=== PATIENT | female | born 1955 | race Caucasian/White ===

== ENCOUNTER 2018-10-17 09:02 | Inpatient (IN) ==
[~2018-10-17 09:02] MED LIST: DEXTROSE 50% 25 GM/50 ML VIAL IV PRN; GLUCAGON 1 MG VIAL IM PRN; ZOLPIDEM 5 MG TABLET PO PRN
[2018-10-17 09:59] LABS: Basophils % 0.4 % (0.0-0.8); Eosinophils # 0.2 10*3/uL (0.0-0.87); Hematocrit 34.2 VOL% (35.7-47.0); Hemoglobin 11.5 GM/DL (12.0-16.0); Immature Granulocytes % 0.3 %; Immature Granulocytes Absolute 0.02 #; Lymphocytes % 26.5 % (21.3-54.2); Mean Corpuscular HGB Conc 33.6 GM/DL (32-36); Mean Corpuscular Volume 84.7 FL (87-102); Mean Platelet Volume 10.7 FL (9.6-12.0); Monocytes % 6.9 % (1.7-12.7); Neutrophils % 62.9 % (38.7-73.9); Platelet Count 171 T/CUMM (130-400); Red Blood Count 4.04 MC/CUMM (3.8-5.5); Red Cell Distribution Width 13.3 % (9.3-17.3); White Blood Count 7.7 T/CUMM (4-12)
[2018-10-17 10:21] LABS: Albumin 3.3 G/DL (3.4-5.0); Bilirubin,Total 0.6 MG/DL (0.2-1.0); Calcium 9.4 MG/DL (8.5-10.1); Osmolality,Calculated 290.3 MOS/KG (273-304)
[2018-10-17] MEDS: LEVOTHYROXINE 100 MCG TABLET PO SCH (12:23)
[2018-10-17] MEDS: CARVEDILOL 6.25 MG TABLET PO SCH ×2 (12:24→20:33)
[2018-10-17] MEDS: hydroCHLOROthiazide 12.5 MG CAPSULE PO SCH (12:26)
[2018-10-17] MEDS: ATORVASTATIN 40 MG TABLET PO SCH (12:26)
[2018-10-17] MEDS: CHLORHEXIDINE 0.12% ORAL RINSE 60 ML BOTTLE SWISH/SPIT SCH ×2 (12:27→20:33)
[2018-10-17] MEDS: LISINOPRIL 20 MG TABLET PO SCH (12:27)
[2018-10-17] MEDS ORDERED: CLORAZEPATE 3.75 MG TABLET PO PRN (13:13)
[2018-10-17] MEDS: CHLORHEXIDINE 4% SOLN 118 ML BOTTLE TOP SCH ×3 (15:13→20:34)
[2018-10-17] MEDS ORDERED: ESCITALOPRAM 10 MG TABLET PO SCH (21:00)
[2018-10-18] MEDS: CHLORHEXIDINE 4% SOLN 118 ML BOTTLE TOP SCH (02:51)
[2018-10-18 04:06] LABS: Allen Test Positive; Pt O2 Delivery Device Room Air
[2018-10-18 04:10] LABS: ABG Base Excess 0.9 MMOL/L (-2.5-2.5); ABG HCO3 25.2 MMOL/L (20-26); ABG Oxygen Saturation 98.7 % (95-100); ABG PCO2 38.1 MM HG (35-48); ABG PH 7.427 (7.35-7.45); ABG TCO2 22.4 MMOL/L (23-27)
[2018-10-18] MEDS ORDERED: PAPAVERINE 60 MG/2 ML VIAL ONE (04:24)
[2018-10-18] MEDS ORDERED: VANCOMYCIN 1,000 MG VIAL ONE (04:25)
[2018-10-18] MEDS ORDERED: LORazepam 1 MG TABLET PO ONE (04:56)
[2018-10-18] MEDS: CARVEDILOL 6.25 MG TABLET PO SCH ×4 (05:35→20:57)
[2018-10-18] MEDS: LEVOTHYROXINE 100 MCG TABLET PO SCH (05:35)
[2018-10-18] MEDS: LISINOPRIL 20 MG TABLET PO SCH ×2 (05:36→14:38)
[2018-10-18] MEDS: hydroCHLOROthiazide 12.5 MG CAPSULE PO SCH ×2 (05:36→14:37)
[2018-10-18] MEDS ORDERED: MIDAZOLAM 10 MG/2 ML VIAL ONE (05:55)
[2018-10-18] MEDS ORDERED: SUFentanil 250 MCG/5 ML AMP ONE (05:55)
[2018-10-18] MEDS ORDERED: CEFUROXIME INJ 1,500 MG in SYRINGE 1 EACH IV ONE (06:00)
[2018-10-18 07:45] LABS: ABG Base Excess 0.3 MMOL/L (-2.5-2.5); ABG HCO3 24.7 MMOL/L (20-26); ABG PCO2 35.6 MM HG (35-48); ABG PH 7.438 (7.35-7.45); ABG TCO2 21.7 MMOL/L (23-27); Glucose Heart Surgery 201 MG/DL (74-106); Hematocrit Heart Surgery 32.8 PERCENT (37-47); Hemoglobin Heart Surgery 10.6 G/DL (12.0-16.0); Ionized Calcium Arterial 1.25 MMOL/L (1.21-1.46); PCO2 Patient Temp Arterial 35.6 MMHG; PH Patient Temp Arterial 7.438; Patient Temperature 37 CELCIUS; Potassium Heart/CVR 3.2 MMOL/L (3.5-5.1); Sodium Heart/CVR 138 MMOL/L (135-145)
[2018-10-18 08:51] LABS: Amorphous Crystals,Urine Occasional /HPF (Few); Apearance,Urine CLOUDY (Clear); Bilirubin,Urine Negative (Negative); Blood, Urine Small mg/dL (Negative); Glucose,Urine (UA) 50 mg/dL (Negative); Ketones,Urine Negative (Negative); Nitrite,Urine Negative (Negative); Protein,Urine >=500 MG/DL; Squamous Epithelial Cell,Urine Occasional /HPF (0-10); Urine Color Yellow (Yellow); Urine Specific Gravity 1.011 (1.001-1.035); Urine Urobilinogen < 2.0 EU/DL (0.2-1.0)
[2018-10-18] MEDS ORDERED: ESCITALOPRAM 10 MG TABLET PO SCH (09:00)
[2018-10-18] MEDS ORDERED: PHENYLEPHRINE 1 MG/10 ML SYRINGE IV ONE ×2 (09:22→11:40)
[2018-10-18] MEDS ORDERED: HEPARIN/NACL 0.9% 2 UNITS/ML 500 ML IV ONE (09:22)
[2018-10-18] MEDS ORDERED: NITROGLYCERIN DRIP 50 MG/250 ML BOTTLE IV ONE (09:22)
[2018-10-18] MEDS ORDERED: PHENYLEPHRINE DRIP 20 MG/250 ML PREMIX IV ONE (09:22)
[2018-10-18 09:28] LABS: Hemoglobin Heart Surgery 6.7 G/DL (12.0-16.0); PCO2 Patient Temp Venous 35.6 MM HG; PH Patient Temp Venous 7.437; PO2 Patient Temp Venous 35.8 MM HG; Potassium Heart/CVR 3.8 MMOL/L (3.5-5.1); VBG Base Excess 0.2 MEQ/L (0-4); VBG HCO3 24.4 MEQ/L (24-28); VBG Oxygen Saturation 79.1 %; VBG PCO2 39.2 MMHG (41-51); VBG PH 7.408; VBG PO2 41.1 MMHG (17-40)
[2018-10-18] MEDS ORDERED: NITROPRUSSIDE 50 MG/2 ML VIAL ONE (09:36)
[2018-10-18] MEDS ORDERED: PHENYLEPHRINE DRIP 40 MG/250 ML PREMIX IV ONE (09:36)
[2018-10-18] MEDS ORDERED: SODIUM BICARBONATE 50 MEQ/50 ML VIAL IV ONE ×2 (09:37→10:45)
[2018-10-18] MEDS ORDERED: CALCIUM CHLORIDE 1,000 MG/10 ML SYRINGE IV ONE (09:37)
[2018-10-18] MEDS ORDERED: POTASSIUM CHLORIDE RIDER 100 ML IV ONE (09:37)
[2018-10-18] MEDS ORDERED: LIDOCAINE 100 MG/5 ML SYRINGE ONE (09:37)
[2018-10-18] MEDS ORDERED: ATROPINE 1 MG/10 ML SYRINGE ONE (09:37)
[2018-10-18] MEDS ORDERED: EPINEPHrine 1 MG/10 ML SYRINGE ONE (09:37)
[2018-10-18] MEDS ORDERED: ALBUMIN 5% 12.5 GM/250 ML VIAL IV ONE (09:37)
[2018-10-18 10:01] LABS: Hematocrit Heart Surgery 21.9 PERCENT (37-47); PCO2 Patient Temp Venous 35.8 MM HG; PH Patient Temp Venous 7.429; PO2 Patient Temp Venous 33.3 MM HG; VBG Base Excess -0.3 MEQ/L (0-4); VBG Oxygen Saturation 75.2 %; VBG PCO2 39.4 MMHG (41-51); VBG PH 7.4; VBG PO2 38.3 MMHG (17-40)
[2018-10-18 10:33] LABS: ABG Base Excess 0.9 MMOL/L (-2.5-2.5); ABG HCO3 25.2 MMOL/L (20-26); ABG Oxygen Saturation 99.9 % (95-100); ABG TCO2 23.5 MMOL/L (23-27); Glucose Heart Surgery 288 MG/DL (74-106); Hematocrit Heart Surgery 26.1 PERCENT (37-47); Hemoglobin Heart Surgery 8.4 G/DL (12.0-16.0); Ionized Calcium Arterial 1.27 MMOL/L (1.21-1.46); Patient Temperature 37 CELCIUS; Potassium Heart/CVR 3.5 MMOL/L (3.5-5.1); Sodium Heart/CVR 132 MMOL/L (135-145)
[2018-10-18] MEDS ORDERED: THROMBIN TOPICAL (RECOMBINANT) 5,000 UNIT VIAL TOP ONE (10:43)
[2018-10-18] MEDS ORDERED: MANNITOL 100 GM/500 ML BAG IV ONE (10:45)
[2018-10-18] MEDS ORDERED: ALBUMIN 25% 25 GM/100 ML VIAL IV ONE (10:45)
[2018-10-18] MEDS ORDERED: DEXTROSE 5% KCL 20 MEQ 20 MEQ/1,000 ML BAG IV ONE (10:45)
[2018-10-18] MEDS ORDERED: FUROSEMIDE 20 MG/2 ML VIAL ONE (10:46)
[2018-10-18] MEDS ORDERED: HEPARIN 10,000 UNIT/10 ML VIAL ONE (10:46)
[2018-10-18] MEDS ORDERED: PROTAMINE SULFATE 250 MG/25 ML VIAL IV ONE (10:46)
[2018-10-18] MEDS ORDERED: MAGNESIUM SULFATE 5 GM/10 ML VIAL IV ONE (10:46)
[2018-10-18] MEDS ORDERED: methylPREDNISolone SOD SUC 1,000 MG/8 ML VIAL ONE (10:46)
[2018-10-18] MEDS ORDERED: PROTAMINE SULFATE 50 MG/5 ML VIAL IV ONE ×3 (10:46→11:44)
[2018-10-18] MEDS: SODIUM CHLORIDE 0.45% 1,000 ML IV SCH ×2 (11:12)
[2018-10-18] MEDS ORDERED: NITROPRUSSIDE 100 MG in DEXTROSE 5% 250 ML IV PRN (11:36)
[2018-10-18] MEDS ORDERED: DEXTROSE 50% 25 GM/50 ML VIAL IV PRN ×2 (11:36)
[2018-10-18] MEDS ORDERED: MAGNESIUM SULF RIDER 4 GM in PREMIX 1 EACH IV PRN (11:36)
[2018-10-18] MEDS ORDERED: PHENYLEPHRINE DRIP 40 MG/250 ML PREMIX IV PRN (11:36)
[2018-10-18] MEDS ORDERED: MAGNESIUM SULF RIDER 2 GM in PREMIX 1 EACH IV PRN (11:36)
[2018-10-18] MEDS ORDERED: CALCIUM CHLORIDE 1,000 MG/10 ML SYRINGE IV PRN (11:36)
[2018-10-18] MEDS ORDERED: VECURONIUM 10 MG VIAL IV PRN ×2 (11:36)
[2018-10-18] MEDS ORDERED: INSULIN REGULAR 100 UNIT/ML IV ONE (11:36)
[2018-10-18] MEDS ORDERED: LACTATED RINGERS 250 ML IV PRN (11:36)
[2018-10-18] MEDS ORDERED: MIDAZOLAM 2 MG/2 ML VIAL IV PRN (11:36)
[2018-10-18] MEDS ORDERED: INSULIN REGULAR 100 UNIT/ML IV PRN (11:36)
[2018-10-18] MEDS ORDERED: ACETAMINOPHEN 650 MG SUPP RECTAL PRN (11:36)
[2018-10-18] MEDS ORDERED: MIDAZOLAM 10 MG/2 ML VIAL IV PRN (11:36)
[2018-10-18] MEDS ORDERED: INSULIN REGULAR DRIP 100 ML IV SCH (11:36)
[2018-10-18] MEDS ORDERED: SEVOFLURANE 1 UNIT/15 MINUTE INH ONE (11:39)
[2018-10-18] MEDS ORDERED: AMINOCAPROIC ACID 5,000 MG/20 ML VIAL ONE (11:40)
[2018-10-18] MEDS ORDERED: SODIUM CHLORIDE 0.9% 1,000 ML IV ONE (11:40)
[2018-10-18] MEDS ORDERED: SODIUM CHLORIDE 0.9% 250 ML IV ONE (11:40)
[2018-10-18] MEDS ORDERED: ETOMIDATE 40 MG/20 ML VIAL IV ONE (11:40)
[2018-10-18] MEDS ORDERED: SODIUM CHLORIDE 0.9% 200 ML IV ONE (11:40)
[2018-10-18 11:46] LABS: ABG Base Excess 1.9 MMOL/L (-2.5-2.5); ABG HCO3 26.1 MMOL/L (20-26); ABG Oxygen Saturation 99.5 % (95-100); ABG PCO2 38.6 MM HG (35-48); ABG PH 7.437 (7.35-7.45); ABG TCO2 23.9 MMOL/L (23-27); Glucose Heart Surgery 292 MG/DL (74-106); Potassium Heart/CVR 3.4 MMOL/L (3.5-5.1)
[2018-10-18] MEDS: POTASSIUM CHLORIDE RIDER 20 MEQ in PREMIX 1 EACH IV PRN ×5 (11:52→17:29)
[2018-10-18 11:53] LABS: Basophils % 0.4 % (0.0-0.8); Eosinophils # 0.1 10*3/uL (0.0-0.87); Eosinophils % 1.4 % (0.00-10.9); Hematocrit 25.7 VOL% (35.7-47.0); Immature Granulocytes % 0.8 %; Immature Granulocytes Absolute 0.04 #; Lymphocytes # 0.8 10*3/uL (1.4-4.0); Lymphocytes % 15.7 % (21.3-54.2); Mean Corpuscular HGB Conc 33.5 GM/DL (32-36); Mean Platelet Volume 10.3 FL (9.6-12.0); Monocytes % 4.7 % (1.7-12.7); Platelet Count 129 T/CUMM (130-400); Red Blood Count 2.99 MC/CUMM (3.8-5.5); Red Cell Distribution Width 13.3 % (9.3-17.3); White Blood Count 5.1 T/CUMM (4-12)
[2018-10-18 11:54] LABS: Hemoglobin 8.6 GM/DL (12.0-16.0)
[2018-10-18] MEDS: KETOROLAC 30 MG/1 ML VIAL IV SCH ×3 (11:57→23:27)
[2018-10-18 12:00] LABS: INR 1.1; PT Patient Result 11.5 SECS
[2018-10-18] MEDS: LACTATED RINGERS 1,000 ML IV PRN ×4 (12:30→15:00)
[2018-10-18 12:33] LABS: CKMB % 6.5 %
[2018-10-18 12:35] LABS: Troponin I 2.93 NG/ML (0.00-0.045)
[2018-10-18 12:42] LABS: Albumin 3.1 G/DL (3.4-5.0); Bilirubin,Total 1.1 MG/DL (0.2-1.0); Calcium 9.3 MG/DL (8.5-10.1); Osmolality,Calculated 288.7 MOS/KG (273-304); Total Protein 5.4 G/DL (6.4-8.3)
[2018-10-18] MEDS: ALBUMIN 5% 12.5 GM in PREMIX 1 EACH IV PRN ×2 (12:46→12:50)
[2018-10-18 13:44] LABS: ABG Base Excess 0.4 MMOL/L (-2.5-2.5); ABG HCO3 24.8 MMOL/L (20-26); ABG Oxygen Saturation 98.9 % (95-100); ABG PCO2 35.9 MM HG (35-48); ABG PH 7.438 (7.35-7.45); ABG TCO2 22.4 MMOL/L (23-27); Glucose Heart Surgery 241 MG/DL (74-106); Hematocrit Heart Surgery 27.5 PERCENT (37-47); Hemoglobin Heart Surgery 8.9 G/DL (12.0-16.0); Potassium Heart/CVR 3.6 MMOL/L (3.5-5.1)
[2018-10-18] MEDS ORDERED: SODIUM CHLORIDE 0.9% 1,000 ML IV PRN (13:48)
[2018-10-18] MEDS: POTASSIUM CHLORIDE RIDER 10 MEQ in PREMIX 1 EACH IV PRN ×3 (14:26→18:02)
[2018-10-18] MEDS: SODIUM CHLORIDE 0.9% 1,000 ML IV SCH ×2 (14:36→14:37)
[2018-10-18] MEDS: ATORVASTATIN 40 MG TABLET PO SCH (14:37)
[2018-10-18] MEDS: CHLORHEXIDINE 0.12% ORAL RINSE 60 ML BOTTLE SWISH/SPIT SCH ×2 (14:38→20:58)
[2018-10-18 15:31] LABS: ABG Base Excess 0.3 MMOL/L (-2.5-2.5); ABG HCO3 24.7 MMOL/L (20-26); ABG Oxygen Saturation 98.9 % (95-100); ABG PH 7.453 (7.35-7.45); ABG TCO2 21.7 MMOL/L (23-27); Glucose Heart Surgery 198 MG/DL (74-106); Hematocrit Heart Surgery 29.6 PERCENT (37-47); Hemoglobin Heart Surgery 9.5 G/DL (12.0-16.0); Potassium Heart/CVR 3.6 MMOL/L (3.5-5.1)
[2018-10-18 17:18] LABS: ABG Base Excess 1.3 MMOL/L (-2.5-2.5); ABG HCO3 25.6 MMOL/L (20-26); ABG Oxygen Saturation 98.8 % (95-100); ABG PCO2 35.2 MM HG (35-48); ABG PH 7.457 (7.35-7.45); ABG TCO2 22.3 MMOL/L (23-27); Glucose Heart Surgery 178 MG/DL (74-106); Hematocrit Heart Surgery 32.6 PERCENT (37-47); Hemoglobin Heart Surgery 10.6 G/DL (12.0-16.0); Potassium Heart/CVR 3.7 MMOL/L (3.5-5.1)
[2018-10-18] MEDS: CEFUROXIME INJ 1,500 MG in SYRINGE 1 EACH IV SCH (18:53)
[2018-10-18 19:04] LABS: ABG HCO3 26.2 MMOL/L (20-26); ABG Oxygen Saturation 99.4 % (95-100); ABG PCO2 34.8 MM HG (35-48); ABG TCO2 22.6 MMOL/L (23-27); Glucose Heart Surgery 156 MG/DL (74-106); Hematocrit Heart Surgery 34.1 PERCENT (37-47); Hemoglobin Heart Surgery 11.1 G/DL (12.0-16.0); Potassium Heart/CVR 4.1 MMOL/L (3.5-5.1)
[2018-10-18 20:58] LABS: ABG Base Excess 1.8 MMOL/L (-2.5-2.5); ABG Oxygen Saturation 98.3 % (95-100); ABG PCO2 39.7 MM HG (35-48); ABG PH 7.427 (7.35-7.45); ABG PO2 93.5 MM HG (80-95); ABG TCO2 23.6 MMOL/L (23-27); Glucose Heart Surgery 136 MG/DL (74-106); Hemoglobin Heart Surgery 10.4 G/DL (12.0-16.0); Potassium Heart/CVR 3.9 MMOL/L (3.5-5.1)
[2018-10-18 21:18] LABS: CKMB % 3.5 %
[2018-10-18 21:21] LABS: Troponin I 5.09 NG/ML (0.00-0.045)
[2018-10-18] MEDS: MORPHINE 10 MG/1 ML VIAL IV PRN (21:50)
[2018-10-18 23:55] LABS: ABG HCO3 26.2 MMOL/L (20-26); ABG Oxygen Saturation 97.6 % (95-100); ABG PCO2 38.4 MM HG (35-48); ABG PO2 85.6 MM HG (80-95); ABG TCO2 23.4 MMOL/L (23-27); Glucose Heart Surgery 140 MG/DL (74-106); Hematocrit Heart Surgery 34.1 PERCENT (37-47); Hemoglobin Heart Surgery 11.1 G/DL (12.0-16.0); Potassium Heart/CVR 3.9 MMOL/L (3.5-5.1)
[2018-10-18] MEDS ORDERED: FUROSEMIDE 40 MG/4 ML VIAL IV ONE (23:55)
[2018-10-19] MEDS: MORPHINE 4 MG/1 ML VIAL IV PRN (00:12)
[2018-10-19] MEDS: POTASSIUM CHLORIDE RIDER 20 MEQ in PREMIX 1 EACH IV PRN ×2 (00:38→07:53)
[2018-10-19] MEDS: POTASSIUM CHLORIDE RIDER 10 MEQ in PREMIX 1 EACH IV PRN (01:10)
[2018-10-19] MEDS: ALBUTEROL/IPRATROPIUM 3 ML NEB RESP TX SCH ×6 (01:42→19:30)
[2018-10-19 02:21] LABS: ABG Base Excess 1.6 MMOL/L (-2.5-2.5); ABG HCO3 25.9 MMOL/L (20-26); ABG Oxygen Saturation 98.3 % (95-100); ABG PCO2 35.8 MM HG (35-48); ABG PH 7.456 (7.35-7.45); ABG TCO2 22.5 MMOL/L (23-27); Glucose Heart Surgery 141 MG/DL (74-106); Hematocrit Heart Surgery 34.4 PERCENT (37-47); Hemoglobin Heart Surgery 11.2 G/DL (12.0-16.0); Potassium Heart/CVR 4.3 MMOL/L (3.5-5.1)
[2018-10-19 03:02] LABS: ABG HCO3 26.1 MMOL/L (20-26); ABG Oxygen Saturation 96.6 % (95-100); ABG PCO2 36.9 MM HG (35-48); ABG PH 7.452 (7.35-7.45); ABG PO2 77.4 MM HG (80-95); ABG TCO2 23.2 MMOL/L (23-27); Glucose Heart Surgery 141 MG/DL (74-106); Hematocrit Heart Surgery 32.8 PERCENT (37-47); Hemoglobin Heart Surgery 10.6 G/DL (12.0-16.0); Potassium Heart/CVR 4.3 MMOL/L (3.5-5.1)
[2018-10-19 03:08] LABS: Basophils % 0.1 % (0.0-0.8); Hematocrit 31.4 VOL% (35.7-47.0); Hemoglobin 10.4 GM/DL (12.0-16.0); Immature Granulocytes % 0.3 %; Immature Granulocytes Absolute 0.03 #; Lymphocytes # 0.6 10*3/uL (1.4-4.0); Lymphocytes % 6.8 % (21.3-54.2); Mean Corpuscular HGB Conc 33.1 GM/DL (32-36); Mean Platelet Volume 11.1 FL (9.6-12.0); Monocytes % 3.5 % (1.7-12.7); Neutrophils % 89.3 % (38.7-73.9); Platelet Count 131 T/CUMM (130-400); Red Blood Count 3.65 MC/CUMM (3.8-5.5); Red Cell Distribution Width 14.1 % (9.3-17.3)
[2018-10-19 03:23] LABS: CKMB % 2.8 %
[2018-10-19 03:25] LABS: Troponin I 4.66 NG/ML (0.00-0.045)
[2018-10-19 03:27] LABS: Albumin 3.1 G/DL (3.4-5.0); Bilirubin,Direct 0.21 MG/DL (0.0-0.20); Bilirubin,Total 0.9 MG/DL (0.2-1.0); Calcium 8.9 MG/DL (8.5-10.1); Osmolality,Calculated 288.1 MOS/KG (273-304); Total Protein 5.8 G/DL (6.4-8.3)
[2018-10-19 04:22] LABS: ABG Base Excess 0.8 MMOL/L (-2.5-2.5); ABG HCO3 25.1 MMOL/L (20-26); ABG Oxygen Saturation 96.2 % (95-100); ABG PH 7.389 (7.35-7.45); ABG PO2 81.8 MM HG (80-95); ABG TCO2 23.3 MMOL/L (23-27); Glucose Heart Surgery 141 MG/DL (74-106); Hematocrit Heart Surgery 33.6 PERCENT (37-47); Hemoglobin Heart Surgery 10.9 G/DL (12.0-16.0); Potassium Heart/CVR 4.2 MMOL/L (3.5-5.1)
[2018-10-19] MEDS: KETOROLAC 30 MG/1 ML VIAL IV SCH ×3 (05:26→16:42)
[2018-10-19] MEDS: ONDANSETRON 4 MG/2 ML VIAL IV PRN (05:49)
[2018-10-19] MEDS ORDERED: FUROSEMIDE 40 MG/4 ML VIAL IV ONE (06:01)
[2018-10-19] MEDS ORDERED: FUROSEMIDE 40 MG/4 ML VIAL ONE (06:01)
[2018-10-19] MEDS ORDERED: AMIODARONE INJ 150 MG in DEXTROSE 5% 100 ML IV ONE (06:27)
[2018-10-19] MEDS ORDERED: AMIODARONE 450 MG/9 ML VIAL IV ONE (06:30)
[2018-10-19] MEDS ORDERED: AMIODARONE INJ 450 MG in DEXTROSE 5% 241 ML IV SCH ×2 (06:30→13:00)
[2018-10-19] MEDS ORDERED: AMIODARONE 150 MG/3 ML VIAL ONE (06:31)
[2018-10-19 06:42] LABS: ABG Base Excess 0.4 MMOL/L (-2.5-2.5); ABG HCO3 25.4 MMOL/L (20-26); ABG Oxygen Saturation 97.4 % (95-100); ABG PCO2 42.4 MM HG (35-48); ABG PH 7.395 (7.35-7.45); ABG PO2 113.5 MM HG (80-95); ABG TCO2 26.7 MMOL/L (23-27); Glucose Heart Surgery 134 MG/DL (74-106); Hemoglobin Heart Surgery 11.4 G/DL (12.0-16.0); Potassium Heart/CVR 4.1 MMOL/L (3.5-5.1)
[2018-10-19] MEDS: INSULIN REGULAR 100 UNIT/ML SUBCUT SCH ×4 (07:26→20:44)
[2018-10-19] MEDS: CEFUROXIME INJ 1,500 MG in SYRINGE 1 EACH IV SCH ×2 (07:52→20:38)
[2018-10-19] MEDS: CHLORHEXIDINE 0.12% ORAL RINSE 60 ML BOTTLE SWISH/SPIT SCH ×2 (08:04→20:58)
[2018-10-19] MEDS: CARVEDILOL 6.25 MG TABLET PO SCH ×2 (08:17→20:38)
[2018-10-19 09:51] LABS: ABG Base Excess -0.7 MMOL/L (-2.5-2.5); ABG HCO3 23.8 MMOL/L (20-26); ABG Oxygen Saturation 96.9 % (95-100); ABG PCO2 42.9 MM HG (35-48); ABG PH 7.368 (7.35-7.45); ABG PO2 90.7 MM HG (80-95); ABG TCO2 22.2 MMOL/L (23-27); Glucose Heart Surgery 201 MG/DL (74-106); Hematocrit Heart Surgery 34.7 PERCENT (37-47); Hemoglobin Heart Surgery 11.3 G/DL (12.0-16.0); Potassium Heart/CVR 4.8 MMOL/L (3.5-5.1)
[2018-10-19] MEDS ORDERED: hydroCHLOROthiazide 25 MG TABLET PO PRN (12:17)
[2018-10-19] MEDS ORDERED: GLUCAGON 1 MG VIAL IM PRN (12:19)
[2018-10-19] MEDS ORDERED: DEXTROSE 50% 25 GM/50 ML VIAL IV PRN (12:19)
[2018-10-19] MEDS: SODIUM CHLORIDE 0.45% 1,000 ML IV SCH ×2 (12:24→12:50)
[2018-10-19 13:27] LABS: CKMB % 1.7 %; Troponin I 3.7 NG/ML (0.00-0.045)
[2018-10-19] MEDS: hydrALAZINE 20 MG/1 ML VIAL IV PRN (16:42)
[2018-10-19] MEDS: INSULIN LISPRO 100 UNIT/ML SUBCUT SCH (17:57)
[2018-10-19] MEDS: MORPHINE 10 MG/1 ML VIAL IV PRN (18:23)
[2018-10-19] MEDS: ATORVASTATIN 40 MG TABLET PO SCH (20:38)
[2018-10-19] MEDS: INSULIN GLARGINE 100 UNIT/ML SUBCUT SCH (20:44)
[2018-10-19] MEDS: LISINOPRIL 20 MG TABLET PO SCH (20:58)
[2018-10-19] MEDS ORDERED: CARVEDILOL 6.25 MG TABLET PO SCH (21:00)
[2018-10-19] MEDS ORDERED: FUROSEMIDE 100 MG/10 ML VIAL IV ONE (21:42)
[2018-10-20] MEDS: ALBUTEROL/IPRATROPIUM 3 ML NEB RESP TX SCH ×8 (00:45→23:31)
[2018-10-20] MEDS: MORPHINE 4 MG/1 ML VIAL IV PRN ×2 (02:24→10:36)
[2018-10-20 04:19] LABS: Basophils % 0.1 % (0.0-0.8); Eosinophils % 0.2 % (0.00-10.9); Hematocrit 30.9 VOL% (35.7-47.0); Hemoglobin 10.2 GM/DL (12.0-16.0); Immature Granulocytes % 0.4 %; Immature Granulocytes Absolute 0.04 #; Lymphocytes # 1.1 10*3/uL (1.4-4.0); Lymphocytes % 11.7 % (21.3-54.2); Mean Corpuscular Volume 88.8 FL (87-102); Mean Platelet Volume 11.2 FL (9.6-12.0); Monocytes % 9.2 % (1.7-12.7); Neutrophils % 78.4 % (38.7-73.9); Platelet Count 113 T/CUMM (130-400); Red Blood Count 3.48 MC/CUMM (3.8-5.5); White Blood Count 9.4 T/CUMM (4-12)
[2018-10-20 04:39] LABS: Albumin 2.9 G/DL (3.4-5.0); Bilirubin,Direct 0.15 MG/DL (0.0-0.20); Bilirubin,Total 0.5 MG/DL (0.2-1.0); Calcium 8.6 MG/DL (8.5-10.1); Osmolality,Calculated 295.4 MOS/KG (273-304); Total Protein 5.9 G/DL (6.4-8.3)
[2018-10-20] MEDS ORDERED: FUROSEMIDE 40 MG/4 ML VIAL IV ONE (08:02)
[2018-10-20] MEDS: LISINOPRIL 20 MG TABLET PO SCH ×2 (08:25→20:11)
[2018-10-20] MEDS: LEVOTHYROXINE 100 MCG TABLET PO SCH (08:26)
[2018-10-20] MEDS: ASPIRIN CHEW 81 MG TABLET PO SCH (08:26)
[2018-10-20] MEDS: CARVEDILOL 6.25 MG TABLET PO SCH ×2 (08:26→20:29)
[2018-10-20] MEDS: ESCITALOPRAM 10 MG TABLET PO SCH (08:26)
[2018-10-20] MEDS: INSULIN LISPRO 100 UNIT/ML SUBCUT SCH ×3 (08:26→16:52)
[2018-10-20] MEDS: CHLORHEXIDINE 0.12% ORAL RINSE 60 ML BOTTLE SWISH/SPIT SCH ×2 (08:27→20:13)
[2018-10-20] MEDS: INSULIN REGULAR 100 UNIT/ML SUBCUT SCH ×4 (08:27→20:11)
[2018-10-20] MEDS: ALBUMIN 5% 12.5 GM in PREMIX 1 EACH IV PRN (08:33)
[2018-10-20] MEDS: ONDANSETRON 4 MG/2 ML VIAL IV PRN (14:04)
[2018-10-20 15:51] LABS: ABG Base Excess 1.2 MMOL/L (-2.5-2.5); ABG HCO3 25.4 MMOL/L (20-26); ABG Oxygen Saturation 96.3 % (95-100); ABG PCO2 45.7 MM HG (35-48); ABG PH 7.375 (7.35-7.45); ABG PO2 82.5 MM HG (80-95); ABG TCO2 24.3 MMOL/L (23-27); Glucose Heart Surgery 187 MG/DL (74-106); Hematocrit Heart Surgery 31.8 PERCENT (37-47); Hemoglobin Heart Surgery 10.3 G/DL (12.0-16.0); Potassium Heart/CVR 4.3 MMOL/L (3.5-5.1)
[2018-10-20] MEDS: FUROSEMIDE 40 MG/4 ML VIAL IV SCH ×2 (16:07→23:56)
[2018-10-20] MEDS: methylPREDNISolone SOD SUC 125 MG/2 ML VIAL IV SCH ×2 (16:11→23:56)
[2018-10-20] MEDS: ATORVASTATIN 40 MG TABLET PO SCH (20:11)
[2018-10-20] MEDS: INSULIN GLARGINE 100 UNIT/ML SUBCUT SCH (20:12)
[2018-10-21] MEDS: ALBUTEROL/IPRATROPIUM 3 ML NEB RESP TX SCH ×6 (03:08→23:21)
[2018-10-21] MEDS: hydrALAZINE 20 MG/1 ML VIAL IV PRN ×3 (03:25→17:08)
[2018-10-21] MEDS: MORPHINE 4 MG/1 ML VIAL IV PRN (04:09)
[2018-10-21 05:26] LABS: Hematocrit 31.2 VOL% (35.7-47.0); Hemoglobin 10.1 GM/DL (12.0-16.0); Immature Granulocytes % 0.8 %; Immature Granulocytes Absolute 0.06 #; Lymphocytes # 0.6 10*3/uL (1.4-4.0); Lymphocytes % 7.6 % (21.3-54.2); Mean Corpuscular HGB Conc 32.4 GM/DL (32-36); Mean Corpuscular Volume 89.7 FL (87-102); Mean Platelet Volume 12.3 FL (9.6-12.0); Monocytes % 2.1 % (1.7-12.7); Neutrophils % 89.5 % (38.7-73.9); Platelet Count 96 T/CUMM (130-400); Red Blood Count 3.48 MC/CUMM (3.8-5.5); Red Cell Distribution Width 14.6 % (9.3-17.3); White Blood Count 7.8 T/CUMM (4-12)
[2018-10-21 05:46] LABS: Anisocytosis 1+; Platelet Estimate Decreased
[2018-10-21 05:49] LABS: Albumin 3.3 G/DL (3.4-5.0); Bilirubin,Direct 0.16 MG/DL (0.0-0.20); Bilirubin,Total 0.8 MG/DL (0.2-1.0); Calcium 8.9 MG/DL (8.5-10.1); Osmolality,Calculated 306.3 MOS/KG (273-304); Total Protein 6.3 G/DL (6.4-8.3)
[2018-10-21] MEDS: CARVEDILOL 6.25 MG TABLET PO SCH ×2 (08:15→20:24)
[2018-10-21] MEDS: ASPIRIN CHEW 81 MG TABLET PO SCH (08:15)
[2018-10-21] MEDS: LEVOTHYROXINE 100 MCG TABLET PO SCH (08:15)
[2018-10-21] MEDS: LISINOPRIL 20 MG TABLET PO SCH ×2 (08:15→20:23)
[2018-10-21] MEDS: ESCITALOPRAM 10 MG TABLET PO SCH (08:15)
[2018-10-21] MEDS: methylPREDNISolone SOD SUC 125 MG/2 ML VIAL IV SCH ×2 (08:15→15:06)
[2018-10-21] MEDS: INSULIN LISPRO 100 UNIT/ML SUBCUT SCH ×3 (08:16→17:09)
[2018-10-21] MEDS: INSULIN REGULAR 100 UNIT/ML SUBCUT SCH ×5 (08:17→22:05)
[2018-10-21] MEDS: FUROSEMIDE 40 MG/4 ML VIAL IV SCH ×3 (08:18→23:53)
[2018-10-21] MEDS: CHLORHEXIDINE 0.12% ORAL RINSE 60 ML BOTTLE SWISH/SPIT SCH ×2 (09:00→20:24)
[2018-10-21] MEDS: oxyCODONE/ACETAMINOPHEN 5-325 MG TABLET PO PRN ×2 (11:22→17:07)
[2018-10-21] MEDS: cloNIDine 0.1 MG TABLET PO SCH ×3 (12:12→20:23)
[2018-10-21] MEDS ORDERED: FUROSEMIDE 40 MG/4 ML VIAL IV SCH (14:00)
[2018-10-21] MEDS ORDERED: AMIODARONE INJ 150 MG in DEXTROSE 5% 100 ML IV ONE (19:13)
[2018-10-21] MEDS ORDERED: AMIODARONE INJ 450 MG in DEXTROSE 5% 241 ML IV SCH (19:30)
[2018-10-21 20:09] LABS: Calcium 8.6 MG/DL (8.5-10.1); Osmolality,Calculated 314.5 MOS/KG (273-304)
[2018-10-21] MEDS: ATORVASTATIN 40 MG TABLET PO SCH (20:23)
[2018-10-21] MEDS: INSULIN GLARGINE 100 UNIT/ML SUBCUT SCH (20:24)
[2018-10-21] MEDS: POTASSIUM CHLORIDE RIDER 20 MEQ in PREMIX 1 EACH IV PRN (22:06)
[2018-10-22] MEDS: INSULIN REGULAR 100 UNIT/ML SUBCUT SCH ×5 (00:02→20:13)
[2018-10-22] MEDS ORDERED: AMIODARONE INJ 450 MG in DEXTROSE 5% 241 ML IV SCH (01:30)
[2018-10-22] MEDS: ALBUTEROL/IPRATROPIUM 3 ML NEB RESP TX SCH ×6 (03:25→23:37)
[2018-10-22 05:10] LABS: Basophils % 0.1 % (0.0-0.8); Hematocrit 31.2 VOL% (35.7-47.0); Immature Granulocytes % 0.4 %; Immature Granulocytes Absolute 0.03 #; Lymphocytes # 0.6 10*3/uL (1.4-4.0); Lymphocytes % 8.9 % (21.3-54.2); Mean Corpuscular HGB Conc 32.1 GM/DL (32-36); Mean Corpuscular Volume 91.8 FL (87-102); Mean Platelet Volume 11.9 FL (9.6-12.0); Monocytes % 6.5 % (1.7-12.7); Neutrophils % 84.1 % (38.7-73.9); Platelet Count 100 T/CUMM (130-400); Red Cell Distribution Width 14.3 % (9.3-17.3); White Blood Count 6.9 T/CUMM (4-12)
[2018-10-22 05:36] LABS: Bilirubin,Total 0.6 MG/DL (0.2-1.0); Calcium 8.7 MG/DL (8.5-10.1); Osmolality,Calculated 308.3 MOS/KG (273-304); Total Protein 6.2 G/DL (6.4-8.3)
[2018-10-22] MEDS: POTASSIUM CHLORIDE RIDER 20 MEQ in PREMIX 1 EACH IV PRN (05:46)
[2018-10-22] MEDS: LEVOTHYROXINE 100 MCG TABLET PO SCH (08:45)
[2018-10-22] MEDS: AMIODARONE 200 MG TABLET PO SCH (08:45)
[2018-10-22] MEDS: ESCITALOPRAM 10 MG TABLET PO SCH (08:45)
[2018-10-22] MEDS: cloNIDine 0.1 MG TABLET PO SCH ×3 (08:46→20:12)
[2018-10-22] MEDS: ASPIRIN CHEW 81 MG TABLET PO SCH (08:46)
[2018-10-22] MEDS: LISINOPRIL 20 MG TABLET PO SCH ×2 (08:46→20:11)
[2018-10-22] MEDS: INSULIN LISPRO 100 UNIT/ML SUBCUT SCH ×3 (08:46→17:48)
[2018-10-22] MEDS: FUROSEMIDE 40 MG/4 ML VIAL IV SCH ×2 (08:47→15:49)
[2018-10-22] MEDS: methylPREDNISolone SOD SUC 125 MG/2 ML VIAL IV SCH ×4 (08:52→23:18)
[2018-10-22] MEDS: CHLORHEXIDINE 0.12% ORAL RINSE 60 ML BOTTLE SWISH/SPIT SCH ×2 (11:28→20:13)
[2018-10-22] MEDS: CARVEDILOL 6.25 MG TABLET PO SCH ×2 (12:23→20:12)
[2018-10-22] MEDS: ATORVASTATIN 40 MG TABLET PO SCH (20:12)
[2018-10-22] MEDS: INSULIN GLARGINE 100 UNIT/ML SUBCUT SCH (20:12)
[2018-10-23] MEDS: hydrALAZINE 20 MG/1 ML VIAL IV PRN (00:05)
[2018-10-23] MEDS: ALBUTEROL/IPRATROPIUM 3 ML NEB RESP TX SCH ×6 (03:41→23:12)
[2018-10-23 04:39] LABS: Hematocrit 30.9 VOL% (35.7-47.0); Hemoglobin 10.1 GM/DL (12.0-16.0); Immature Granulocytes % 0.9 %; Immature Granulocytes Absolute 0.06 #; Lymphocytes # 0.6 10*3/uL (1.4-4.0); Lymphocytes % 9.2 % (21.3-54.2); Mean Corpuscular HGB Conc 32.7 GM/DL (32-36); Mean Corpuscular Volume 89.3 FL (87-102); Mean Platelet Volume 12.1 FL (9.6-12.0); Monocytes % 5.8 % (1.7-12.7); Neutrophils % 84.1 % (38.7-73.9); Platelet Count 101 T/CUMM (130-400); Red Blood Count 3.46 MC/CUMM (3.8-5.5); White Blood Count 6.5 T/CUMM (4-12)
[2018-10-23 04:50] LABS: Albumin 2.8 G/DL (3.4-5.0); Bilirubin,Total 0.5 MG/DL (0.2-1.0); Calcium 8.5 MG/DL (8.5-10.1); Osmolality,Calculated 312.5 MOS/KG (273-304)
[2018-10-23 04:51] LABS: Hypochromasia 1+; Platelet Estimate Decreased
[2018-10-23] MEDS: POTASSIUM CHLORIDE RIDER 20 MEQ in PREMIX 1 EACH IV PRN (05:06)
[2018-10-23] MEDS: POTASSIUM CHLORIDE RIDER 10 MEQ in PREMIX 1 EACH IV PRN (05:41)
[2018-10-23] MEDS: INSULIN REGULAR 100 UNIT/ML SUBCUT SCH ×4 (07:43→21:33)
[2018-10-23] MEDS: INSULIN LISPRO 100 UNIT/ML SUBCUT SCH ×3 (07:43→16:57)
[2018-10-23] MEDS: LISINOPRIL 20 MG TABLET PO SCH ×2 (08:59→21:31)
[2018-10-23] MEDS: LEVOTHYROXINE 100 MCG TABLET PO SCH (09:00)
[2018-10-23] MEDS: AMIODARONE 200 MG TABLET PO SCH (09:00)
[2018-10-23] MEDS: CARVEDILOL 6.25 MG TABLET PO SCH ×2 (09:00→21:33)
[2018-10-23] MEDS: ASPIRIN CHEW 81 MG TABLET PO SCH (09:00)
[2018-10-23] MEDS: CHLORHEXIDINE 0.12% ORAL RINSE 60 ML BOTTLE SWISH/SPIT SCH ×3 (09:00→21:41)
[2018-10-23] MEDS: ESCITALOPRAM 10 MG TABLET PO SCH (09:00)
[2018-10-23] MEDS: cloNIDine 0.1 MG TABLET PO SCH ×3 (09:00→21:32)
[2018-10-23] MEDS ORDERED: KETOROLAC 15 MG/1 ML VIAL IV PRN (10:52)
[2018-10-23] MEDS ORDERED: POTASSIUM CHLORIDE 20 MEQ TABLET PO PRN (10:52)
[2018-10-23] MEDS ORDERED: DEXTROSE 50% 25 GM/50 ML VIAL IV PRN ×2 (10:52)
[2018-10-23] MEDS ORDERED: ACETAMINOPHEN 325 MG TABLET PO PRN (10:52)
[2018-10-23] MEDS ORDERED: ALUMINUM/MAGNES/SIMETH MAX STR 30 ML UDCUP PO PRN (10:52)
[2018-10-23] MEDS ORDERED: MAGNESIUM SULF RIDER 4 GM in PREMIX 1 EACH IV PRN (10:52)
[2018-10-23] MEDS ORDERED: SODIUM CHLOR 0.45% KCL 20 MEQ 20 MEQ/1,000 ML BAG IV SCH (10:52)
[2018-10-23] MEDS ORDERED: ONDANSETRON 4 MG/2 ML VIAL IV PRN (10:52)
[2018-10-23] MEDS ORDERED: GLUCAGON 1 MG VIAL IM PRN ×2 (10:52)
[2018-10-23] MEDS ORDERED: MAGNESIUM SULF RIDER 2 GM in PREMIX 1 EACH IV PRN (10:52)
[2018-10-23] MEDS ORDERED: ZALEPLON 5 MG CAPSULE PO PRN (10:52)
[2018-10-23] MEDS: FERROUS SULFATE 325 MG TABLET PO SCH (11:07)
[2018-10-23] MEDS: CILOSTAZOL 50 MG TABLET PO SCH ×2 (12:08→21:32)
[2018-10-23] MEDS: DOCUSATE SODIUM 100 MG CAPSULE PO SCH (12:08)
[2018-10-23] MEDS: ISOSORBIDE DINITRATE 20 MG TABLET PO SCH ×3 (12:08→21:32)
[2018-10-23] MEDS: PANTOPRAZOLE 40 MG TABLET PO SCH (12:08)
[2018-10-23] MEDS: methylPREDNISolone SOD SUC 40 MG/1 ML VIAL IV SCH (12:09)
[2018-10-23] MEDS: oxyCODONE/ACETAMINOPHEN 5-325 MG TABLET PO PRN (21:32)
[2018-10-23] MEDS: INSULIN GLARGINE 100 UNIT/ML SUBCUT SCH ×2 (21:34→22:41)
[2018-10-24] MEDS: methylPREDNISolone SOD SUC 40 MG/1 ML VIAL IV SCH ×2 (00:38→12:33)
[2018-10-24] MEDS: ALBUTEROL/IPRATROPIUM 3 ML NEB RESP TX SCH ×6 (02:04→23:12)
[2018-10-24 04:53] LABS: Hematocrit 30.2 VOL% (35.7-47.0); Hemoglobin 9.6 GM/DL (12.0-16.0); Immature Granulocytes % 0.4 %; Immature Granulocytes Absolute 0.03 #; Lymphocytes # 0.6 10*3/uL (1.4-4.0); Mean Corpuscular HGB Conc 31.8 GM/DL (32-36); Mean Corpuscular Volume 89.9 FL (87-102); Mean Platelet Volume 11.5 FL (9.6-12.0); Monocytes % 7.9 % (1.7-12.7); Neutrophils % 83.7 % (38.7-73.9); Platelet Count 108 T/CUMM (130-400); Red Blood Count 3.36 MC/CUMM (3.8-5.5); Red Cell Distribution Width 13.7 % (9.3-17.3)
[2018-10-24 05:28] LABS: Alanine Aminotransferase 29 U/L (13-56); Albumin 2.9 G/DL (3.4-5.0); Alkaline Phosphatase 54 U/L (45-117); Aspartate Amino Transferase 16 U/L (0-37); Bilirubin,Indirect 0.7 MG/DL (0.0-1.0); Blood Urea Nitrogen 79 MG/DL (7-18); Glucose 224 MG/DL (74-106); Osmolality,Calculated 311.3 MOS/KG (273-304); Total Protein 5.7 G/DL (6.4-8.3); Troponin I 0.509 NG/ML (0.00-0.045)
[2018-10-24] MEDS ORDERED: FUROSEMIDE 40 MG/4 ML VIAL IV ONE (06:00)
[2018-10-24] MEDS ORDERED: BISACODYL 10 MG SUPP RECTAL PRN (09:21)
[2018-10-24] MEDS: INSULIN GLARGINE 100 UNIT/ML SUBCUT SCH ×2 (09:39→21:10)
[2018-10-24] MEDS: ISOSORBIDE DINITRATE 20 MG TABLET PO SCH ×3 (09:40→21:12)
[2018-10-24] MEDS: CILOSTAZOL 50 MG TABLET PO SCH ×2 (09:40→21:11)
[2018-10-24] MEDS: CARVEDILOL 6.25 MG TABLET PO SCH ×2 (09:40→21:11)
[2018-10-24] MEDS: ASPIRIN CHEW 81 MG TABLET PO SCH (09:40)
[2018-10-24] MEDS: LISINOPRIL 20 MG TABLET PO SCH ×2 (09:40→21:11)
[2018-10-24] MEDS: LEVOTHYROXINE 100 MCG TABLET PO SCH (09:40)
[2018-10-24] MEDS: PANTOPRAZOLE 40 MG TABLET PO SCH (09:40)
[2018-10-24] MEDS: DOCUSATE SODIUM 100 MG CAPSULE PO SCH (09:40)
[2018-10-24] MEDS: ESCITALOPRAM 10 MG TABLET PO SCH (09:40)
[2018-10-24] MEDS: FERROUS SULFATE 325 MG TABLET PO SCH (09:41)
[2018-10-24] MEDS: cloNIDine 0.1 MG TABLET PO SCH ×3 (09:41→21:11)
[2018-10-24] MEDS: AMIODARONE 200 MG TABLET PO SCH (09:41)
[2018-10-24] MEDS: INSULIN LISPRO 100 UNIT/ML SUBCUT SCH ×3 (09:41→15:59)
[2018-10-24] MEDS: INSULIN REGULAR 100 UNIT/ML SUBCUT SCH ×4 (09:41→21:10)
[2018-10-24] MEDS: CHLORHEXIDINE 0.12% ORAL RINSE 60 ML BOTTLE SWISH/SPIT SCH ×2 (09:43→21:12)
[2018-10-24] MEDS: oxyCODONE/ACETAMINOPHEN 5-325 MG TABLET PO PRN (21:09)
[2018-10-25] MEDS: methylPREDNISolone SOD SUC 40 MG/1 ML VIAL IV SCH ×3 (01:51→23:35)
[2018-10-25] MEDS: ALBUTEROL/IPRATROPIUM 3 ML NEB RESP TX SCH ×5 (02:34→19:45)
[2018-10-25 05:38] LABS: Basophils % 0.1 % (0.0-0.8); Eosinophils % 0.1 % (0.00-10.9); Hematocrit 30.6 VOL% (35.7-47.0); Hemoglobin 9.9 GM/DL (12.0-16.0); Immature Granulocytes % 0.7 %; Immature Granulocytes Absolute 0.06 #; Lymphocytes # 0.6 10*3/uL (1.4-4.0); Lymphocytes % 6.4 % (21.3-54.2); Mean Corpuscular HGB Conc 32.4 GM/DL (32-36); Mean Corpuscular Volume 89.7 FL (87-102); Monocytes % 7.6 % (1.7-12.7); Neutrophils % 85.1 % (38.7-73.9); Platelet Count 115 T/CUMM (130-400); Red Blood Count 3.41 MC/CUMM (3.8-5.5); Red Cell Distribution Width 13.7 % (9.3-17.3); White Blood Count 9.2 T/CUMM (4-12)
[2018-10-25 06:02] LABS: Alanine Aminotransferase 43 U/L (13-56); Albumin 2.7 G/DL (3.4-5.0); Alkaline Phosphatase 55 U/L (45-117); Aspartate Amino Transferase 25 U/L (0-37); Bilirubin,Indirect 0.8 MG/DL (0.0-1.0); Blood Urea Nitrogen 81 MG/DL (7-18); Calcium 9.1 MG/DL (8.5-10.1); Glucose 104 MG/DL (74-106); Total Protein 5.7 G/DL (6.4-8.3)
[2018-10-25] MEDS: LISINOPRIL 20 MG TABLET PO SCH ×2 (10:06→20:39)
[2018-10-25] MEDS: AMIODARONE 200 MG TABLET PO SCH (10:06)
[2018-10-25] MEDS: CILOSTAZOL 50 MG TABLET PO SCH ×2 (10:06→20:39)
[2018-10-25] MEDS: ISOSORBIDE DINITRATE 20 MG TABLET PO SCH ×3 (10:06→20:39)
[2018-10-25] MEDS: CARVEDILOL 6.25 MG TABLET PO SCH ×2 (10:07→20:39)
[2018-10-25] MEDS: ASPIRIN CHEW 81 MG TABLET PO SCH (10:07)
[2018-10-25] MEDS: PANTOPRAZOLE 40 MG TABLET PO SCH (10:07)
[2018-10-25] MEDS: ESCITALOPRAM 10 MG TABLET PO SCH (10:07)
[2018-10-25] MEDS: DOCUSATE SODIUM 100 MG CAPSULE PO SCH (10:07)
[2018-10-25] MEDS: FERROUS SULFATE 325 MG TABLET PO SCH (10:07)
[2018-10-25] MEDS: INSULIN GLARGINE 100 UNIT/ML SUBCUT SCH ×2 (10:07→20:40)
[2018-10-25] MEDS: cloNIDine 0.1 MG TABLET PO SCH ×3 (10:07→20:39)
[2018-10-25] MEDS: LEVOTHYROXINE 100 MCG TABLET PO SCH (10:07)
[2018-10-25] MEDS: INSULIN LISPRO 100 UNIT/ML SUBCUT SCH ×3 (10:08→18:17)
[2018-10-25] MEDS: CHLORHEXIDINE 0.12% ORAL RINSE 60 ML BOTTLE SWISH/SPIT SCH ×2 (10:21→20:40)
[2018-10-25] MEDS: INSULIN REGULAR 100 UNIT/ML SUBCUT SCH ×4 (10:22→20:40)
[2018-10-25] MEDS: oxyCODONE/ACETAMINOPHEN 5-325 MG TABLET PO PRN (20:39)
[2018-10-26] MEDS: ALBUTEROL/IPRATROPIUM 3 ML NEB RESP TX SCH ×6 (00:15→20:10)
[2018-10-26] MEDS: INSULIN LISPRO 100 UNIT/ML SUBCUT SCH ×3 (10:05→16:44)
[2018-10-26] MEDS: CILOSTAZOL 50 MG TABLET PO SCH ×2 (10:07→21:38)
[2018-10-26] MEDS: DOCUSATE SODIUM 100 MG CAPSULE PO SCH (10:07)
[2018-10-26] MEDS: LISINOPRIL 20 MG TABLET PO SCH ×2 (10:07→21:38)
[2018-10-26] MEDS: ESCITALOPRAM 10 MG TABLET PO SCH (10:08)
[2018-10-26] MEDS: CARVEDILOL 6.25 MG TABLET PO SCH ×2 (10:08→21:38)
[2018-10-26] MEDS: ISOSORBIDE DINITRATE 20 MG TABLET PO SCH ×3 (10:08→21:38)
[2018-10-26] MEDS: FERROUS SULFATE 325 MG TABLET PO SCH (10:08)
[2018-10-26] MEDS: AMIODARONE 200 MG TABLET PO SCH (10:08)
[2018-10-26] MEDS: PANTOPRAZOLE 40 MG TABLET PO SCH (10:08)
[2018-10-26] MEDS: LEVOTHYROXINE 100 MCG TABLET PO SCH (10:08)
[2018-10-26] MEDS: ASPIRIN CHEW 81 MG TABLET PO SCH (10:08)
[2018-10-26] MEDS: CHLORHEXIDINE 0.12% ORAL RINSE 60 ML BOTTLE SWISH/SPIT SCH ×2 (10:11→21:39)
[2018-10-26] MEDS: INSULIN REGULAR 100 UNIT/ML SUBCUT SCH ×5 (10:13→21:49)
[2018-10-26] MEDS: cloNIDine 0.1 MG TABLET PO SCH ×3 (10:18→21:38)
[2018-10-26] MEDS: INSULIN GLARGINE 100 UNIT/ML SUBCUT SCH ×2 (10:18→22:15)
[2018-10-26] MEDS: methylPREDNISolone SOD SUC 40 MG/1 ML VIAL IV SCH ×2 (12:38→23:35)
[2018-10-26] MEDS: oxyCODONE/ACETAMINOPHEN 5-325 MG TABLET PO PRN (12:41)
[2018-10-26] MEDS: MAGNESIUM HYDROXIDE SUSP 30 ML UDCUP PO PRN (17:18)
[2018-10-27] MEDS: methylPREDNISolone SOD SUC 40 MG/1 ML VIAL IV SCH ×3 (00:10→23:40)
[2018-10-27] MEDS: ALBUTEROL/IPRATROPIUM 3 ML NEB RESP TX SCH ×7 (00:17→23:47)
[2018-10-27 04:55] LABS: Basophils % 0.1 % (0.0-0.8); Eosinophils % 0.1 % (0.00-10.9); Hematocrit 31.4 VOL% (35.7-47.0); Immature Granulocytes % 2.4 %; Immature Granulocytes Absolute 0.22 #; Lymphocytes # 0.7 10*3/uL (1.4-4.0); Lymphocytes % 7.3 % (21.3-54.2); Mean Corpuscular HGB Conc 31.8 GM/DL (32-36); Mean Platelet Volume 11.9 FL (9.6-12.0); Monocytes % 5.6 % (1.7-12.7); Neutrophils % 84.5 % (38.7-73.9); Platelet Count 110 T/CUMM (130-400); Red Blood Count 3.49 MC/CUMM (3.8-5.5); Red Cell Distribution Width 13.9 % (9.3-17.3); White Blood Count 9.2 T/CUMM (4-12)
[2018-10-27 05:25] LABS: Alanine Aminotransferase 76 U/L (13-56); Albumin 2.8 G/DL (3.4-5.0); Alkaline Phosphatase 59 U/L (45-117); Aspartate Amino Transferase 52 U/L (0-37); Bilirubin,Indirect 0.5 MG/DL (0.0-1.0); Blood Urea Nitrogen 78 MG/DL (7-18); Calcium 8.7 MG/DL (8.5-10.1); Glucose 129 MG/DL (74-106); Osmolality,Calculated 310.8 MOS/KG (273-304); Total Protein 5.6 G/DL (6.4-8.3)
[2018-10-27 05:28] LABS: Troponin I 0.232 NG/ML (0.00-0.045)
[2018-10-27] MEDS: LISINOPRIL 20 MG TABLET PO SCH ×2 (09:38→21:16)
[2018-10-27] MEDS: CARVEDILOL 6.25 MG TABLET PO SCH ×2 (09:38→21:16)
[2018-10-27] MEDS: INSULIN LISPRO 100 UNIT/ML SUBCUT SCH ×3 (09:38→16:14)
[2018-10-27] MEDS: PANTOPRAZOLE 40 MG TABLET PO SCH (09:38)
[2018-10-27] MEDS: LEVOTHYROXINE 100 MCG TABLET PO SCH (09:38)
[2018-10-27] MEDS: ISOSORBIDE DINITRATE 20 MG TABLET PO SCH ×3 (09:38→21:16)
[2018-10-27] MEDS: AMIODARONE 200 MG TABLET PO SCH (09:38)
[2018-10-27] MEDS: cloNIDine 0.1 MG TABLET PO SCH ×3 (09:38→21:16)
[2018-10-27] MEDS: ESCITALOPRAM 10 MG TABLET PO SCH (09:38)
[2018-10-27] MEDS: ASPIRIN CHEW 81 MG TABLET PO SCH (09:38)
[2018-10-27] MEDS: FERROUS SULFATE 325 MG TABLET PO SCH (09:38)
[2018-10-27] MEDS: CILOSTAZOL 50 MG TABLET PO SCH ×2 (09:38→21:16)
[2018-10-27] MEDS: INSULIN GLARGINE 100 UNIT/ML SUBCUT SCH ×2 (09:39→21:16)
[2018-10-27] MEDS: INSULIN REGULAR 100 UNIT/ML SUBCUT SCH ×4 (10:25→21:16)
[2018-10-27] MEDS: DOCUSATE SODIUM 100 MG CAPSULE PO SCH (10:45)
[2018-10-27] MEDS: LACTULOSE 20 GM/30 ML UDCUP PO PRN (10:45)
[2018-10-27] MEDS: CHLORHEXIDINE 0.12% ORAL RINSE 60 ML BOTTLE SWISH/SPIT SCH ×2 (10:47→21:20)
[2018-10-28] MEDS: ALBUTEROL/IPRATROPIUM 3 ML NEB RESP TX SCH ×6 (03:46→22:58)
[2018-10-28 05:11] LABS: Basophils % 0.2 % (0.0-0.8); Eosinophils % 0.2 % (0.00-10.9); Hematocrit 30.2 VOL% (35.7-47.0); Hemoglobin 9.7 GM/DL (12.0-16.0); Immature Granulocytes % 3.7 %; Immature Granulocytes Absolute 0.35 #; Lymphocytes # 0.7 10*3/uL (1.4-4.0); Lymphocytes % 7.7 % (21.3-54.2); Mean Corpuscular HGB Conc 32.1 GM/DL (32-36); Mean Corpuscular Volume 90.7 FL (87-102); Mean Platelet Volume 12.2 FL (9.6-12.0); Monocytes % 4.6 % (1.7-12.7); Neutrophils % 83.6 % (38.7-73.9); Platelet Count 106 T/CUMM (130-400); Red Blood Count 3.33 MC/CUMM (3.8-5.5); White Blood Count 9.4 T/CUMM (4-12)
[2018-10-28 05:31] LABS: Alanine Aminotransferase 83 U/L (13-56); Albumin 2.7 G/DL (3.4-5.0); Alkaline Phosphatase 60 U/L (45-117); Aspartate Amino Transferase 38 U/L (0-37); Bilirubin,Indirect 0.6 MG/DL (0.0-1.0); Blood Urea Nitrogen 67 MG/DL (7-18); Calcium 8.8 MG/DL (8.5-10.1); Glucose 137 MG/DL (74-106); Total Protein 5.3 G/DL (6.4-8.3)
[2018-10-28 05:35] LABS: Troponin I 0.167 NG/ML (0.00-0.045)
[2018-10-28] MEDS: LACTULOSE 20 GM/30 ML UDCUP PO PRN (08:21)
[2018-10-28] MEDS: INSULIN GLARGINE 100 UNIT/ML SUBCUT SCH ×2 (08:21→21:12)
[2018-10-28] MEDS: INSULIN LISPRO 100 UNIT/ML SUBCUT SCH ×3 (08:21→17:10)
[2018-10-28] MEDS: LISINOPRIL 20 MG TABLET PO SCH ×2 (08:22→21:11)
[2018-10-28] MEDS: CILOSTAZOL 50 MG TABLET PO SCH ×2 (08:22→21:11)
[2018-10-28] MEDS: AMIODARONE 200 MG TABLET PO SCH (08:22)
[2018-10-28] MEDS: FERROUS SULFATE 325 MG TABLET PO SCH (08:22)
[2018-10-28] MEDS: DOCUSATE SODIUM 100 MG CAPSULE PO SCH (08:22)
[2018-10-28] MEDS: cloNIDine 0.1 MG TABLET PO SCH ×3 (08:22→21:11)
[2018-10-28] MEDS: CARVEDILOL 6.25 MG TABLET PO SCH ×2 (08:23→21:12)
[2018-10-28] MEDS: ISOSORBIDE DINITRATE 20 MG TABLET PO SCH ×3 (08:23→21:11)
[2018-10-28] MEDS: LEVOTHYROXINE 100 MCG TABLET PO SCH (08:23)
[2018-10-28] MEDS: ASPIRIN CHEW 81 MG TABLET PO SCH (08:23)
[2018-10-28] MEDS: ESCITALOPRAM 10 MG TABLET PO SCH (08:23)
[2018-10-28] MEDS: PANTOPRAZOLE 40 MG TABLET PO SCH (08:23)
[2018-10-28] MEDS: CHLORHEXIDINE 0.12% ORAL RINSE 60 ML BOTTLE SWISH/SPIT SCH ×2 (08:24→21:15)
[2018-10-28] MEDS: INSULIN REGULAR 100 UNIT/ML SUBCUT SCH ×4 (08:30→21:12)
[2018-10-28] MEDS: MAGNESIUM HYDROXIDE SUSP 30 ML UDCUP PO PRN (10:10)
[2018-10-28] MEDS: methylPREDNISolone SOD SUC 40 MG/1 ML VIAL IV SCH (12:32)
[2018-10-29] MEDS: ALBUTEROL/IPRATROPIUM 3 ML NEB RESP TX SCH ×6 (02:26→23:00)
[2018-10-29] MEDS: ESCITALOPRAM 10 MG TABLET PO SCH (10:07)
[2018-10-29] MEDS: DOCUSATE SODIUM 100 MG CAPSULE PO SCH (10:07)
[2018-10-29] MEDS: PANTOPRAZOLE 40 MG TABLET PO SCH (10:08)
[2018-10-29] MEDS: ISOSORBIDE DINITRATE 20 MG TABLET PO SCH ×3 (10:08→21:41)
[2018-10-29] MEDS: INSULIN LISPRO 100 UNIT/ML SUBCUT SCH ×3 (10:08→17:51)
[2018-10-29] MEDS: cloNIDine 0.1 MG TABLET PO SCH ×3 (10:08→21:42)
[2018-10-29] MEDS: CARVEDILOL 6.25 MG TABLET PO SCH ×2 (10:08→21:42)
[2018-10-29] MEDS: ASPIRIN CHEW 81 MG TABLET PO SCH (10:08)
[2018-10-29] MEDS: CILOSTAZOL 50 MG TABLET PO SCH ×2 (10:08→21:42)
[2018-10-29] MEDS: FERROUS SULFATE 325 MG TABLET PO SCH (10:08)
[2018-10-29] MEDS: LISINOPRIL 20 MG TABLET PO SCH ×2 (10:08→21:45)
[2018-10-29] MEDS: LEVOTHYROXINE 100 MCG TABLET PO SCH (10:08)
[2018-10-29] MEDS: AMIODARONE 200 MG TABLET PO SCH (10:08)
[2018-10-29] MEDS: INSULIN GLARGINE 100 UNIT/ML SUBCUT SCH ×2 (10:09→21:42)
[2018-10-29] MEDS: INSULIN REGULAR 100 UNIT/ML SUBCUT SCH ×4 (10:10→21:46)
[2018-10-29] MEDS: CHLORHEXIDINE 0.12% ORAL RINSE 60 ML BOTTLE SWISH/SPIT SCH ×2 (10:11→21:46)
[2018-10-29] MEDS: methylPREDNISolone SOD SUC 40 MG/1 ML VIAL IV SCH (14:51)
[2018-10-30] MEDS: methylPREDNISolone SOD SUC 40 MG/1 ML VIAL IV SCH (00:11)
[2018-10-30] MEDS: ALBUTEROL/IPRATROPIUM 3 ML NEB RESP TX SCH ×2 (02:05→08:11)
[2018-10-30 08:06] VITALS: BP 172/75
[2018-10-30] MEDS: INSULIN REGULAR 100 UNIT/ML SUBCUT SCH (08:08)
[2018-10-30] MEDS: INSULIN LISPRO 100 UNIT/ML SUBCUT SCH (08:11)
[2018-10-30] MEDS: LEVOTHYROXINE 100 MCG TABLET PO SCH (08:12)
[2018-10-30] MEDS: INSULIN GLARGINE 100 UNIT/ML SUBCUT SCH (08:12)
[2018-10-30] MEDS: ASPIRIN CHEW 81 MG TABLET PO SCH (08:12)
[2018-10-30] MEDS: ESCITALOPRAM 10 MG TABLET PO SCH (08:12)
[2018-10-30] MEDS: LISINOPRIL 20 MG TABLET PO SCH (08:12)
[2018-10-30] MEDS: FERROUS SULFATE 325 MG TABLET PO SCH (08:13)
[2018-10-30] MEDS: PANTOPRAZOLE 40 MG TABLET PO SCH (08:13)
[2018-10-30] MEDS: DOCUSATE SODIUM 100 MG CAPSULE PO SCH (08:13)
[2018-10-30] MEDS: AMIODARONE 200 MG TABLET PO SCH (08:13)
[2018-10-30] MEDS: cloNIDine 0.1 MG TABLET PO SCH (08:13)
[2018-10-30] MEDS: CARVEDILOL 6.25 MG TABLET PO SCH (08:13)
[2018-10-30] MEDS: ISOSORBIDE DINITRATE 20 MG TABLET PO SCH ×2 (08:13→08:21)
[2018-10-30] MEDS: CHLORHEXIDINE 0.12% ORAL RINSE 60 ML BOTTLE SWISH/SPIT SCH (08:21)
[2018-10-30] MEDS: CILOSTAZOL 50 MG TABLET PO SCH (08:22)
[2018-10-31] MEDS ORDERED: predniSONE 5 MG TABLET PO SCH (09:00)
== END 2018-10-30 11:16 | disposition home health service (06) | DRG 236 ==
LOC: N.TELES 09:02 → N.CVR 10-18 07:03 → N.ICU 10-19 13:08 → N.TELES 10-23 12:46

== ENCOUNTER 2020-12-17 20:59 | Inpatient (IN) ==
[2020-12-17] MEDS ORDERED: ONDANSETRON 4 MG/2 ML VIAL IV STA (21:30)
[2020-12-17] MEDS ORDERED: FUROSEMIDE 100 MG/10 ML VIAL IV STA (21:30)
[2020-12-17 21:33] LABS: Basophils % 0.4 % (0.0-0.8); Eosinophils # 0.1 10*3/uL (0.0-0.87); Eosinophils % 1.7 % (0.00-10.9); Hematocrit 33.5 VOL% (35.7-47.0); Immature Granulocytes % 0.3 %; Immature Granulocytes Absolute 0.02 #; Lymphocytes # 0.7 10*3/uL (1.4-4.0); Lymphocytes % 9.3 % (21.3-54.2); Mean Corpuscular HGB Conc 32.8 GM/DL (32-36); Mean Corpuscular Volume 88.4 FL (87-102); Mean Platelet Volume 10.3 FL (9.6-12.0); Monocytes % 8.2 % (1.7-12.7); Neutrophils % 80.1 % (38.7-73.9); Platelet Count 134 T/CUMM (130-400); Red Blood Count 3.79 MC/CUMM (3.8-5.5); White Blood Count 7.1 T/CUMM (4-12)
[2020-12-17 21:50] LABS: Bilirubin,Total 0.5 MG/DL (0.20-1.00); Calcium 8.4 MG/DL (8.5-10.1); Osmolality,Calculated 289.3 MOS/KG (273-304); Potassium 3.5 MMOL/L (3.5-5.1); Total Protein 6.6 G/DL (6.4-8.2)
[2020-12-17] MEDS ORDERED: ENOXAPARIN 100 MG/ML SYRINGE SUBCUT STA (22:29)
[2020-12-17] MEDS ORDERED: ONDANSETRON 4 MG/2 ML VIAL IV PRN (22:34)
[2020-12-17] MEDS ORDERED: diphenhydrAMINE CAP 25 MG CAPSULE PO PRN (22:34)
[2020-12-17] MEDS ORDERED: MORPHINE 2 MG/1 ML SYRINGE IV PRN (22:34)
[2020-12-17] MEDS ORDERED: DOCUSATE SODIUM 100 MG CAPSULE PO PRN (22:34)
[2020-12-17] MEDS ORDERED: DEXTROSE 50% 25 GM/50 ML VIAL IV PRN (22:34)
[2020-12-17] MEDS ORDERED: hydrALAZINE 20 MG/1 ML VIAL IV PRN (22:34)
[2020-12-17] MEDS ORDERED: guaiFENesin/DM ER 600-30 MG TABLET PO PRN (22:34)
[2020-12-17] MEDS ORDERED: GLUCAGON 1 MG VIAL IM PRN (22:34)
[2020-12-17] MEDS ORDERED: NICOTINE 21 MG/24 HR PATCH TRANSDERM PRN (22:34)
[2020-12-17] MEDS ORDERED: NITROGLYCERIN SL 0.4 MG TABLET SL PRN (22:39)
[2020-12-17 23:45] LABS: Bacteria,Urine Occasional /HPF (Few); Bilirubin,Urine Negative (Negative); Blood, Urine Small mg/dL (Negative); Glucose,Urine (UA) Negative (Negative); Hyaline Casts,Urine 1 /LPF (0-3); Ketones,Urine Negative (Negative); Mucus,Urine Occasional /LPF (Occasional); Nitrite,Urine Negative (Negative); Protein,Urine >=500 MG/DL; RBC,Urine 2 /HPF (0-4); Squamous Epithelial Cell,Urine Occasional /HPF (0-10); Urine Appearance CLEAR (Clear); Urine Color Straw (Yellow); Urine Specific Gravity 1.008 (1.001-1.035); Urine Urobilinogen < 2.0 EU/DL (0.2-1.0)
[2020-12-18 05:10] LABS: Basophils % 0.3 % (0.0-0.8); Eosinophils # 0.1 10*3/uL (0.0-0.87); Eosinophils % 1.6 % (0.00-10.9); Hematocrit 35.4 VOL% (35.7-47.0); Hemoglobin 11.3 GM/DL (12.0-16.0); Immature Granulocytes % 0.3 %; Immature Granulocytes Absolute 0.02 #; Lymphocytes % 15.9 % (21.3-54.2); Mean Corpuscular HGB Conc 31.9 GM/DL (32-36); Mean Corpuscular Volume 90.1 FL (87-102); Mean Platelet Volume 10.7 FL (9.6-12.0); Monocytes % 8.2 % (1.7-12.7); Neutrophils % 73.7 % (38.7-73.9); Platelet Count 132 T/CUMM (130-400); Red Blood Count 3.93 MC/CUMM (3.8-5.5); Red Cell Distribution Width 13.9 % (9.3-17.3); White Blood Count 6.3 T/CUMM (4-12)
[2020-12-18 05:32] LABS: Calcium 8.4 MG/DL (8.5-10.1); Osmolality,Calculated 290.1 MOS/KG (273-304); Potassium 3.4 MMOL/L (3.5-5.1)
[2020-12-18] MEDS: LEVOTHYROXINE 100 MCG TABLET PO SCH (06:11)
[2020-12-18] MEDS: INSULIN LISPRO 100 UNIT/ML SUBCUT SCH ×4 (08:00→21:44)
[2020-12-18] MEDS: FUROSEMIDE 40 MG/4 ML VIAL IV SCH ×2 (08:26→15:37)
[2020-12-18] MEDS: PANTOPRAZOLE 40 MG TABLET PO SCH (10:37)
[2020-12-18] MEDS: ASPIRIN CHEW 81 MG TABLET PO SCH (10:37)
[2020-12-18] MEDS: TICAGRELOR 90 MG TABLET PO SCH ×2 (10:37→21:45)
[2020-12-18] MEDS: ISOSORBIDE DINITRATE 20 MG TABLET PO SCH ×3 (10:37→21:45)
[2020-12-18] MEDS: carvediloL 25 MG TABLET PO SCH ×2 (10:38→17:22)
[2020-12-18] MEDS: cilostazoL 50 MG TABLET PO SCH ×2 (10:38→21:45)
[2020-12-18] MEDS: ESCITALOPRAM 10 MG TABLET PO SCH (11:02)
[2020-12-18] MEDS: LACTATED RINGERS 1,000 ML IV SCH (17:23)
[2020-12-18] MEDS: INSULIN GLARGINE 100 UNIT/ML SUBCUT SCH (21:45)
[2020-12-18] MEDS: EZETIMIBE 10 MG TABLET PO SCH (21:45)
[2020-12-18] MEDS: ROSUVASTATIN 10 MG TABLET PO SCH (21:45)
[2020-12-18] MEDS: FAMOTIDINE 20 MG TABLET PO SCH (21:45)
[2020-12-19] MEDS: LACTATED RINGERS 1,000 ML IV SCH ×2 (04:14→15:49)
[2020-12-19 05:41] LABS: Basophils % 0.5 % (0.0-0.8); Eosinophils # 0.2 10*3/uL (0.0-0.87); Eosinophils % 4.4 % (0.00-10.9); Red Cell Distribution Width 14.1 % (9.3-17.3); White Blood Count 5.5 T/CUMM (4-12)
[2020-12-19 05:47] LABS: Hematocrit 30.3 VOL% (35.7-47.0); Hemoglobin 9.9 GM/DL (12.0-16.0); Immature Granulocytes % 0.4 %; Immature Granulocytes Absolute 0.02 #; Lymphocytes # 1.3 10*3/uL (1.4-4.0); Lymphocytes % 23.7 % (21.3-54.2); Mean Corpuscular HGB Conc 32.7 GM/DL (32-36); Mean Corpuscular Volume 91.3 FL (87-102); Mean Platelet Volume 10.6 FL (9.6-12.0); Monocytes % 14.6 % (1.7-12.7); Neutrophils % 56.4 % (38.7-73.9); Platelet Count 131 T/CUMM (130-400); Red Blood Count 3.32 MC/CUMM (3.8-5.5)
[2020-12-19 06:10] LABS: Calcium 8.5 MG/DL (8.5-10.1); Osmolality,Calculated 285.3 MOS/KG (273-304)
[2020-12-19] MEDS: LEVOTHYROXINE 100 MCG TABLET PO SCH (06:34)
[2020-12-19] MEDS: INSULIN LISPRO 100 UNIT/ML SUBCUT SCH ×4 (08:14→22:00)
[2020-12-19] MEDS: cilostazoL 50 MG TABLET PO SCH ×2 (09:26→21:59)
[2020-12-19] MEDS: ASPIRIN CHEW 81 MG TABLET PO SCH (09:26)
[2020-12-19] MEDS: PANTOPRAZOLE 40 MG TABLET PO SCH (09:26)
[2020-12-19] MEDS: carvediloL 25 MG TABLET PO SCH ×2 (09:26→16:54)
[2020-12-19] MEDS: TICAGRELOR 90 MG TABLET PO SCH ×2 (09:26→21:58)
[2020-12-19] MEDS: ESCITALOPRAM 10 MG TABLET PO SCH (09:26)
[2020-12-19] MEDS: ISOSORBIDE DINITRATE 20 MG TABLET PO SCH ×3 (09:27→21:59)
[2020-12-19] MEDS ORDERED: POTASSIUM CHLORIDE 20 MEQ TABLET PO ONE (09:55)
[2020-12-19] MEDS: FUROSEMIDE 40 MG TABLET PO SCH (12:08)
[2020-12-19] MEDS: FAMOTIDINE 20 MG TABLET PO SCH (21:58)
[2020-12-19] MEDS: ZALEPLON 5 MG CAPSULE PO PRN (21:58)
[2020-12-19] MEDS: ROSUVASTATIN 10 MG TABLET PO SCH (21:58)
[2020-12-19] MEDS: EZETIMIBE 10 MG TABLET PO SCH (21:58)
[2020-12-19] MEDS: POTASSIUM CHLORIDE 20 MEQ TABLET PO SCH (21:59)
[2020-12-19] MEDS: INSULIN GLARGINE 100 UNIT/ML SUBCUT SCH (21:59)
[2020-12-20] MEDS: LACTATED RINGERS 1,000 ML IV SCH (01:49)
[2020-12-20 05:35] LABS: Basophils % 0.6 % (0.0-0.8); Eosinophils # 0.2 10*3/uL (0.0-0.87); Eosinophils % 4.7 % (0.00-10.9); Hematocrit 31.7 VOL% (35.7-47.0); Hemoglobin 10.3 GM/DL (12.0-16.0); Immature Granulocytes % 0.2 %; Immature Granulocytes Absolute 0.01 #; Lymphocytes # 1.1 10*3/uL (1.4-4.0); Lymphocytes % 21.3 % (21.3-54.2); Mean Corpuscular HGB Conc 32.5 GM/DL (32-36); Mean Corpuscular Volume 90.3 FL (87-102); Mean Platelet Volume 10.4 FL (9.6-12.0); Monocytes % 12.6 % (1.7-12.7); Neutrophils % 60.6 % (38.7-73.9); Platelet Count 109 T/CUMM (130-400); Red Blood Count 3.51 MC/CUMM (3.8-5.5); White Blood Count 5.1 T/CUMM (4-12)
[2020-12-20 06:02] LABS: Free T4 (Free Thyroxine) 1.32 NG/DL (0.76-1.46); Thyroid Stimulating Hormone 0.278 uIU/ml (0.358-3.74)
[2020-12-20 06:08] LABS: Calcium 8.5 MG/DL (8.5-10.1); Osmolality,Calculated 287.1 MOS/KG (273-304); Potassium 3.9 MMOL/L (3.5-5.1)
[2020-12-20] MEDS: LEVOTHYROXINE 100 MCG TABLET PO SCH (06:54)
[2020-12-20] MEDS: INSULIN LISPRO 100 UNIT/ML SUBCUT SCH ×4 (07:32→22:01)
[2020-12-20] MEDS: TICAGRELOR 90 MG TABLET PO SCH ×2 (09:11→21:58)
[2020-12-20] MEDS: ESCITALOPRAM 10 MG TABLET PO SCH (09:11)
[2020-12-20] MEDS: ASPIRIN CHEW 81 MG TABLET PO SCH (09:11)
[2020-12-20] MEDS: cilostazoL 50 MG TABLET PO SCH ×2 (09:11→21:59)
[2020-12-20] MEDS: FUROSEMIDE 40 MG TABLET PO SCH (09:11)
[2020-12-20] MEDS: POTASSIUM CHLORIDE 20 MEQ TABLET PO SCH ×2 (09:11→21:59)
[2020-12-20] MEDS: carvediloL 25 MG TABLET PO SCH ×2 (09:11→16:39)
[2020-12-20] MEDS: PANTOPRAZOLE 40 MG TABLET PO SCH (09:11)
[2020-12-20] MEDS: ISOSORBIDE DINITRATE 20 MG TABLET PO SCH ×3 (09:11→21:58)
[2020-12-20] MEDS: EZETIMIBE 10 MG TABLET PO SCH (21:58)
[2020-12-20] MEDS: FAMOTIDINE 20 MG TABLET PO SCH (21:58)
[2020-12-20] MEDS: ROSUVASTATIN 10 MG TABLET PO SCH (21:58)
[2020-12-20] MEDS: ZALEPLON 5 MG CAPSULE PO PRN (21:58)
[2020-12-20] MEDS: INSULIN GLARGINE 100 UNIT/ML SUBCUT SCH (22:02)
[2020-12-21] MEDS: LEVOTHYROXINE 100 MCG TABLET PO SCH (06:23)
[2020-12-21 06:52] LABS: Basophils % 0.8 % (0.0-0.8); Eosinophils # 0.3 10*3/uL (0.0-0.87); Eosinophils % 5.5 % (0.00-10.9); Hematocrit 31.3 VOL% (35.7-47.0); Hemoglobin 10.1 GM/DL (12.0-16.0); Immature Granulocytes % 0.2 %; Immature Granulocytes Absolute 0.01 #; Lymphocytes # 1.2 10*3/uL (1.4-4.0); Lymphocytes % 22.2 % (21.3-54.2); Mean Corpuscular HGB Conc 32.3 GM/DL (32-36); Mean Corpuscular Volume 90.2 FL (87-102); Neutrophils % 59.3 % (38.7-73.9); Platelet Count 122 T/CUMM (130-400); Red Blood Count 3.47 MC/CUMM (3.8-5.5); Red Cell Distribution Width 13.9 % (9.3-17.3); White Blood Count 5.2 T/CUMM (4-12)
[2020-12-21 07:14] LABS: Calcium 8.6 MG/DL (8.5-10.1); Osmolality,Calculated 287.1 MOS/KG (273-304); Potassium 3.9 MMOL/L (3.5-5.1)
[2020-12-21] MEDS: INSULIN LISPRO 100 UNIT/ML SUBCUT SCH ×4 (07:42→21:53)
[2020-12-21] MEDS ORDERED: POTASSIUM CHLORIDE RIDER 10 MEQ/100 ML PREMIX IV PRN (08:05)
[2020-12-21] MEDS ORDERED: MAGNESIUM SULF RIDER 2 GM/50 ML PREMIX IV PRN (08:05)
[2020-12-21] MEDS: SODIUM CHLORIDE 0.9% 1,000 ML IV SCH (10:03)
[2020-12-21] MEDS: POTASSIUM CHLORIDE 20 MEQ TABLET PO SCH ×2 (10:08→21:52)
[2020-12-21] MEDS: TICAGRELOR 90 MG TABLET PO SCH ×2 (10:08→21:52)
[2020-12-21] MEDS: PANTOPRAZOLE 40 MG TABLET PO SCH (10:08)
[2020-12-21] MEDS: ISOSORBIDE DINITRATE 20 MG TABLET PO SCH ×3 (10:08→21:52)
[2020-12-21] MEDS: carvediloL 25 MG TABLET PO SCH ×2 (10:08→16:11)
[2020-12-21] MEDS: ESCITALOPRAM 10 MG TABLET PO SCH (10:08)
[2020-12-21] MEDS: ASPIRIN CHEW 81 MG TABLET PO SCH (10:08)
[2020-12-21] MEDS: cilostazoL 50 MG TABLET PO SCH ×2 (10:08→21:52)
[2020-12-21] MEDS: ACETYLCYSTEINE 600 MG CAPSULE PO SCH ×2 (10:11→21:52)
[2020-12-21] MEDS: FAMOTIDINE 20 MG TABLET PO SCH (21:52)
[2020-12-21] MEDS: ROSUVASTATIN 10 MG TABLET PO SCH (21:52)
[2020-12-21] MEDS: INSULIN GLARGINE 100 UNIT/ML SUBCUT SCH (21:53)
[2020-12-21] MEDS: EZETIMIBE 10 MG TABLET PO SCH (21:53)
[2020-12-22] MEDS: SODIUM CHLORIDE 0.9% 1,000 ML IV SCH ×2 (01:41→13:52)
[2020-12-22 05:59] LABS: Basophils % 0.4 % (0.0-0.8); Eosinophils # 0.3 10*3/uL (0.0-0.87); Eosinophils % 5.3 % (0.00-10.9); Hemoglobin 9.8 GM/DL (12.0-16.0); Immature Granulocytes % 0.4 %; Immature Granulocytes Absolute 0.02 #; Lymphocytes # 1.1 10*3/uL (1.4-4.0); Lymphocytes % 20.2 % (21.3-54.2); Mean Corpuscular HGB Conc 31.6 GM/DL (32-36); Mean Corpuscular Volume 91.4 FL (87-102); Mean Platelet Volume 11.2 FL (9.6-12.0); Neutrophils % 62.7 % (38.7-73.9); Platelet Count 109 T/CUMM (130-400); Red Blood Count 3.39 MC/CUMM (3.8-5.5); Red Cell Distribution Width 13.7 % (9.3-17.3); White Blood Count 5.3 T/CUMM (4-12)
[2020-12-22] MEDS ORDERED: diphenhydrAMINE CAP 25 MG CAPSULE PO ONE (06:30)
[2020-12-22] MEDS ORDERED: DIAZEPAM 5 MG TABLET PO ONE (06:30)
[2020-12-22] MEDS ORDERED: HEPARIN/NACL 0.9% 2 UNITS/ML 0 UNIT/0 ML BAG IV ONE (06:39)
[2020-12-22] MEDS ORDERED: LIDOCAINE 1% 20 ML VIAL ONE ×2 (06:39→06:49)
[2020-12-22 06:41] LABS: Calcium 8.6 MG/DL (8.5-10.1); Osmolality,Calculated 288.3 MOS/KG (273-304); Potassium 5.1 MMOL/L (3.5-5.1)
[2020-12-22] MEDS ORDERED: HEPARIN/NACL 0.9% 2 UNITS/ML 2,000 UNIT/1,000 ML BAG IV ONE (06:49)
[2020-12-22] MEDS ORDERED: HYDROmorphone 2 MG/1 ML VIAL ONE (07:09)
[2020-12-22] MEDS ORDERED: MIDAZOLAM 2 MG/2 ML VIAL ONE (07:09)
[2020-12-22] MEDS ORDERED: BIVALIRUDIN 250 MG VIAL IV ONE (07:39)
[2020-12-22] MEDS ORDERED: NITROGLYCERIN DRIP 50 MG/250 ML BOTTLE IV ONE (07:55)
[2020-12-22] MEDS ORDERED: TICAGRELOR 90 MG TABLET ONE (08:04)
[2020-12-22] MEDS ORDERED: DEXTROSE 50% 25 GM/50 ML VIAL IV PRN (08:07)
[2020-12-22] MEDS: ACETYLCYSTEINE 600 MG CAPSULE PO SCH ×2 (12:34→21:10)
[2020-12-22] MEDS: ISOSORBIDE DINITRATE 20 MG TABLET PO SCH ×3 (12:34→21:11)
[2020-12-22] MEDS: POTASSIUM CHLORIDE 20 MEQ TABLET PO SCH ×2 (12:34→21:11)
[2020-12-22] MEDS: ASPIRIN CHEW 81 MG TABLET PO SCH (12:34)
[2020-12-22] MEDS: cilostazoL 50 MG TABLET PO SCH ×2 (12:34→21:11)
[2020-12-22] MEDS: carvediloL 25 MG TABLET PO SCH ×2 (12:35→16:57)
[2020-12-22] MEDS: TICAGRELOR 90 MG TABLET PO SCH ×2 (12:35→21:11)
[2020-12-22] MEDS: LEVOTHYROXINE 88 MCG TABLET PO SCH (12:35)
[2020-12-22] MEDS: DAPAGLIFLOZIN 10 MG TABLET PO SCH (12:35)
[2020-12-22] MEDS: ESCITALOPRAM 10 MG TABLET PO SCH (12:35)
[2020-12-22] MEDS: PANTOPRAZOLE 40 MG TABLET PO SCH (12:35)
[2020-12-22] MEDS: INSULIN LISPRO 100 UNIT/ML SUBCUT SCH ×3 (12:48→21:12)
[2020-12-22] MEDS: ACETAMINOPHEN 325 MG TABLET PO PRN (15:39)
[2020-12-22 18:21] LABS: CDT Result Negative (Negative); CDT Specimen Source STOOL
[2020-12-22] MEDS: FAMOTIDINE 20 MG TABLET PO SCH (21:10)
[2020-12-22] MEDS: ROSUVASTATIN 10 MG TABLET PO SCH (21:10)
[2020-12-22] MEDS: EZETIMIBE 10 MG TABLET PO SCH (21:11)
[2020-12-22] MEDS: INSULIN GLARGINE 100 UNIT/ML SUBCUT SCH (21:11)
[2020-12-23] MEDS: ACETAMINOPHEN 325 MG TABLET PO PRN (02:22)
[2020-12-23] MEDS: SODIUM CHLORIDE 0.9% 1,000 ML IV SCH (02:26)
[2020-12-23] MEDS: LEVOTHYROXINE 88 MCG TABLET PO SCH (06:14)
[2020-12-23 06:28] LABS: Basophils % 0.4 % (0.0-0.8); Eosinophils # 0.2 10*3/uL (0.0-0.87); Eosinophils % 3.5 % (0.00-10.9); Immature Granulocytes % 0.2 %; Immature Granulocytes Absolute 0.01 #; Lymphocytes # 0.7 10*3/uL (1.4-4.0); Lymphocytes % 14.9 % (21.3-54.2); Mean Corpuscular HGB Conc 32.1 GM/DL (32-36); Mean Corpuscular Volume 92.4 FL (87-102); Mean Platelet Volume 11.5 FL (9.6-12.0); Monocytes % 10.8 % (1.7-12.7); Neutrophils % 70.2 % (38.7-73.9); Red Blood Count 3.03 MC/CUMM (3.8-5.5); White Blood Count 4.9 T/CUMM (4-12)
[2020-12-23 06:38] LABS: Platelet Count 96 T/CUMM (130-400)
[2020-12-23 06:40] LABS: Calcium 8.2 MG/DL (8.5-10.1); Osmolality,Calculated 291.8 MOS/KG (273-304); Potassium 5.1 MMOL/L (3.5-5.1)
[2020-12-23] MEDS: INSULIN LISPRO 100 UNIT/ML SUBCUT SCH ×4 (08:40→22:06)
[2020-12-23] MEDS: ACETYLCYSTEINE 600 MG CAPSULE PO SCH ×2 (09:41→22:04)
[2020-12-23] MEDS: carvediloL 25 MG TABLET PO SCH ×2 (09:41→17:09)
[2020-12-23] MEDS: POTASSIUM CHLORIDE 20 MEQ TABLET PO SCH ×2 (09:41→22:04)
[2020-12-23] MEDS: TICAGRELOR 90 MG TABLET PO SCH ×2 (09:41→22:05)
[2020-12-23] MEDS: ESCITALOPRAM 10 MG TABLET PO SCH (09:41)
[2020-12-23] MEDS: PANTOPRAZOLE 40 MG TABLET PO SCH (09:41)
[2020-12-23] MEDS: ASPIRIN CHEW 81 MG TABLET PO SCH (09:41)
[2020-12-23] MEDS: ISOSORBIDE DINITRATE 20 MG TABLET PO SCH ×3 (09:41→22:04)
[2020-12-23] MEDS: DAPAGLIFLOZIN 10 MG TABLET PO SCH (09:41)
[2020-12-23] MEDS: cilostazoL 50 MG TABLET PO SCH ×2 (09:41→22:11)
[2020-12-23] MEDS ORDERED: ALBUTEROL/IPRATROPIUM 3 ML NEB RESP TX ONE (14:38)
[2020-12-23] MEDS ORDERED: FUROSEMIDE 40 MG/4 ML VIAL IV ONE (16:14)
[2020-12-23] MEDS: FAMOTIDINE 20 MG TABLET PO SCH (22:05)
[2020-12-23] MEDS: ROSUVASTATIN 10 MG TABLET PO SCH (22:05)
[2020-12-23] MEDS: ZALEPLON 5 MG CAPSULE PO PRN (22:05)
[2020-12-23] MEDS: INSULIN GLARGINE 100 UNIT/ML SUBCUT SCH (22:06)
[2020-12-23] MEDS: EZETIMIBE 10 MG TABLET PO SCH (22:10)
[2020-12-24 04:38] LABS: Basophils % 0.5 % (0.0-0.8); Eosinophils # 0.2 10*3/uL (0.0-0.87); Eosinophils % 3.7 % (0.00-10.9); Hematocrit 28.2 VOL% (35.7-47.0); Hemoglobin 8.9 GM/DL (12.0-16.0); Immature Granulocytes % 0.5 %; Immature Granulocytes Absolute 0.03 #; Lymphocytes % 16.9 % (21.3-54.2); Mean Corpuscular HGB Conc 31.6 GM/DL (32-36); Mean Corpuscular Volume 91.9 FL (87-102); Mean Platelet Volume 11.6 FL (9.6-12.0); Monocytes % 11.5 % (1.7-12.7); Neutrophils % 66.9 % (38.7-73.9); Platelet Count 106 T/CUMM (130-400); Red Blood Count 3.07 MC/CUMM (3.8-5.5); Red Cell Distribution Width 13.6 % (9.3-17.3); White Blood Count 5.7 T/CUMM (4-12)
[2020-12-24 04:58] LABS: Calcium 8.7 MG/DL (8.5-10.1); Osmolality,Calculated 290.8 MOS/KG (273-304); Potassium 4.5 MMOL/L (3.5-5.1)
[2020-12-24] MEDS: LEVOTHYROXINE 88 MCG TABLET PO SCH (06:11)
[2020-12-24 07:20] VITALS: BP 147/51
[2020-12-24] MEDS: INSULIN LISPRO 100 UNIT/ML SUBCUT SCH ×2 (08:36→11:19)
[2020-12-24] MEDS: ESCITALOPRAM 10 MG TABLET PO SCH (09:39)
[2020-12-24] MEDS: cilostazoL 50 MG TABLET PO SCH (09:39)
[2020-12-24] MEDS: PANTOPRAZOLE 40 MG TABLET PO SCH (09:39)
[2020-12-24] MEDS: POTASSIUM CHLORIDE 20 MEQ TABLET PO SCH (09:39)
[2020-12-24] MEDS: ASPIRIN CHEW 81 MG TABLET PO SCH (09:39)
[2020-12-24] MEDS: DAPAGLIFLOZIN 10 MG TABLET PO SCH (09:39)
[2020-12-24] MEDS: ISOSORBIDE DINITRATE 20 MG TABLET PO SCH (09:39)
[2020-12-24] MEDS: carvediloL 25 MG TABLET PO SCH (09:39)
[2020-12-24] MEDS: TICAGRELOR 90 MG TABLET PO SCH (09:39)
[2020-12-24] MEDS ORDERED: ROSUVASTATIN 20 MG TABLET PO SCH (21:00)
== END 2020-12-24 11:52 | disposition home or self-care (01) | DRG 246 ==
LOC: N.ED 20:59 → SUATTDRO 22:34 → N.EDINP 12-18 00:15 → N.TELES 12-18 03:07
PROVIDERS: ADMIT Internal Medicine; ATTEND Internal Medicine
PROC: CLCCHCL (ICD-10-PCS; 2020-12-22 07:15)